=== PATIENT | female | born 1940 | race Caucasian/White ===

== ENCOUNTER 2017-03-03 13:00 | Outpatient (CLI) | payer MEDICARE, OTHER | END 2017-03-04 23:59 | disposition short-term general hospital (02) | LOC: D.OPS 13:00 | DX: K52.9 Noninfective gastroenteritis and colitis, unspecified (principal); E86.0 Dehydration; I44.7 Left bundle-branch block, unspecified; R94.31 Abnormal electrocardiogram [ECG] [EKG]; I10 Essential (primary) hypertension; Z95.0 Presence of cardiac pacemaker ==

== ENCOUNTER → 2017-05-24 12:34 | Outpatient (CLI) | payer MEDICARE, OTHER | END | disposition home or self-care (01) | LOC: D.RAD 12:34 | DX: R13.10 Dysphagia, unspecified (principal) ==

== ENCOUNTER 2017-10-06 08:52 | Observation (INO) | payer MEDICARE, OTHER ==
[~2017-10-06] VITALS: Ht 172.7 cm; Wt 52.4 kg
--- NOTE | ~2017-10-06 | EC ---
PATIENT:JOHNNA JUÁREZ DATE OF SERVICE: 10/06/17 SEX: F MEDICAL RECORD: [id number] DATE OF : 36 LOCATION:D. D.212 AGE OF PATIENT: 77 ADMISSION DATE: 10/06/17 REFERRING PHYSICIAN: INTERPRETING PHYSICIAN: JUAN TAN MD ECHOCARDIOGRAM REPORT ECHO CHARGES 4 ECHO COMPLETE CLINICAL DIAGNOSIS: SYNCOPE ECHOCARDIOGRAPHIC MEASUREMENTS (adult normal given) AC root (d.<3.7cm) 3.1 cm LV Septum d (<1.2 cm> 1.4 cm Valve Excursion 2.1 cm LV Septum (systole) 2.1 cm Left Atria (s.<4.0cm> 3.6 cm LVPW d(<1.2cm) 1.2 cm RV (d.<2.3cm) 2.5 cm LVPW (sytole) 2.0 cm LV diastole(<5.6CM) 4.6 cm MV E-F(>70mm/sec) cm LV systole 2.5 cm LVOT Diameter 1.8 cm MV exc.(>10mm) cm Est.ejection fraction (50-75%) % Pericardial Effusion N DOPPLER: LVIT cm/sec A 41.0 cm/sec E 65.0 cm/sec LA cm/sec RVSP 46.0 mmHg LVOT 121 cm/sec AOP1/2T m/s Asc. Ao 145 cm/sec RVOT 62.0 cm/sec RA cm/sec PA 79.0 cm/sec AV Gradient Peak 8.4 mmHg AV Mean 5.7 mmHg AV Area 2.0 cm MV Gradient Peak 3.4 mmHg MV Mean 1.0 mmHg MV Area cm COMMENTS: Player Services Representative: Brigid CONTIOE Clinic Director: Syl Tan TAPE# PACS DATE OF SERVICE: 10/06/2017 PROCEDURE: Transthoracic echocardiogram. FINDINGS: 1. Left ventricle has mild concentric left ventricular hypertrophy with normal function and flow characteristics are normal. The ejection fraction is 60%. 2. The left atrium is normal size, normal function. 3. The aortic valve is grossly normal without any abnormalities. 4. The mitral valve shown to have mild mitral regurgitation. ECHOCARDIOGRAM REPORT [id number] JOHNNA JUÁREZ 5. The pulmonic valve has trace pulmonic insufficiency. 6. The tricuspid valve has chus-rs-atuliinm tricuspid regurgitation with an RVSP of 35 to 40 mmHg. CONCLUSIONS: The patient has evidence of mild left ventricular hypertrophy with possibly mild pulmonary hypertension. Otherwise, the echo was normal. TRANSINT:[id number] Voice Confirmation ID: [id number] DOCUMENT ID: [id number] 10/16/2017 Edited to correct date of service, dmm. JUAN TAN MD at 1038 CC: [id number] DICTATION DATE: 10/10/17 0833 MECHANICAL TEST ENGINEER: 10/10/17 1132 DIS IN 10/07/17 [facility] [address] [place] [address]
[2017-10-06 09:42] LABS: BASOPHILS 0.5 % (0-2); EOSINOPHILS 2.7 % (0-7); HEMATOCRIT 37.9 % (36.0-48.0); IMMATURE GRANULOCYTES 0.2 % (0-5); LYMPHOCYTES 25.8 % (15-50); MCH 34.5 pg (26.0-34.0); MCHC 34.3 g/dL (31.0-37.0); MCV 100.5 fL (80.0-100.0); MONOCYTES 9.2 % (2-11); NEUTROPHILS 61.6 % (40-80); PLATELET COUNT 130 10x3/uL (130-400); RBC 3.77 10x6/uL (4.00-5.40); RDW 14.5 % (11.5-14.5); WBC 5.9 10x3/uL (4.8-10.8)
[2017-10-06 10:01] LABS: ALBUMIN 3.1 g/dL (3.4-5.0); ALKALINE PHOSPHATASE 77 U/L (46-116); ALT (SGPT) 35 U/L (10-68); BILIRUBIN - TOTAL 0.77 mg/dL (0.2-1.3); CALC OSMOLALITY 292 mosm/kg (275-300); CARBON DIOXIDE 26.5 mmol/L (21.0-32.0); CHLORIDE - SERUM 108 mmol/L (98-107); CREATININE - SERUM 0.7 mg/dL (0.6-1.3); GLUCOSE 100 mg/dL (74-106); POTASSIUM - SERUM 3.9 mmol/L (3.5-5.1); PROTEIN - SERUM 5.9 g/dL (6.4-8.2); SODIUM 143 mmol/L (136-145); UREA NITROGEN 35 mg/dL (7-18); eGFR NON AFRICAN AMERICAN 85 mL/min (90-120)
[2017-10-06 10:22] LABS: CREATINE KINASE 422 UL (21-215)
[2017-10-06 10:36] LABS: TROPONIN-I < 0.017 ng/mL (0.000-0.060)
[2017-10-06 10:38] LABS: CKMB 32.4 U/L (0.0-3.6)
[2017-10-06 12:05] LABS: APPEARANCE CLEAR (CLEAR); BILIRUBIN NEGATIVE (NEGATIVE); COLOR YELLOW (YELLOW); GLUCOSE NEGATIVE (NEGATIVE); KETONE NEGATIVE (NEGATIVE); NITRITE NEGATIVE (NEGATIVE); PROTEIN NEGATIVE (NEGATIVE); SPECIFIC GRAVITY 1.015 (1.005-1.020); UROBILINOGEN NORMAL (NORMAL)
[2017-10-06 13:00] LABS: CKMB 32.2 U/L (0.0-3.6); CREATINE KINASE 420 UL (21-215)
[2017-10-06 13:01] LABS: TROPONIN-I < 0.017 ng/mL (0.000-0.060)
[2017-10-06 13:38] VITALS: BP 124/43; Ht 172.7 cm; Wt 52.4 kg
[2017-10-06] MEDS ORDERED: CHLORTHALIDONE25 MG PO (14:06)
[2017-10-06] MEDS ORDERED: PRINIVIL20 MG PO (14:06)
[2017-10-06] MEDS ORDERED: BETAPACE160 MG PO (14:07)
[2017-10-06] MEDS ORDERED: FLORAJEN3 CAPS460 MG PO (14:07)
[2017-10-06] MEDS ORDERED: ZYLOPRIM100 MG PO (14:09)
[2017-10-06] MEDS ORDERED: VITAMIN D2000 UNIT PO (14:09)
[2017-10-06] MEDS ORDERED: ZANTAC300 MG (14:09)
[2017-10-06] MEDS ORDERED: BAYER CHEWABLE81 MG PO (14:10)
[2017-10-06] MEDS ORDERED: LOMOTIL TABLET1 TAB PO (14:11)
[2017-10-06 15:40] VITALS: BP 131/52
[2017-10-06 18:34] LABS: CKMB 25.9 U/L (0.0-3.6); CREATINE KINASE 362 UL (21-215); TROPONIN-I < 0.017 ng/mL (0.000-0.060)
[2017-10-06 21:52] VITALS: BP 116/58
[2017-10-07 00:52] VITALS: BP 104/43
[2017-10-07 01:25] LABS: CKMB 19.4 U/L (0.0-3.6); CREATINE KINASE 302 UL (21-215)
[2017-10-07 01:26] LABS: TROPONIN-I 0.016 ng/mL (0.000-0.060)
[2017-10-07 05:25] LABS: BASOPHILS 0.5 % (0-2); EOSINOPHILS 4.8 % (0-7); HEMATOCRIT 33.3 % (36.0-48.0); HEMOGLOBIN 11.3 g/dL (12-16); IMMATURE GRANULOCYTES 0.2 % (0-5); LYMPHOCYTES 36.6 % (15-50); MCH 33.9 pg (26.0-34.0); MCHC 33.9 g/dL (31.0-37.0); MEAN PLATELET VOLUME 10.6 fL (7.4-10.4); MONOCYTES 11.2 % (2-11); NEUTROPHILS 46.7 % (40-80); PLATELET COUNT 137 10x3/uL (130-400); RBC 3.33 10x6/uL (4.00-5.40); RDW 14.4 % (11.5-14.5)
[2017-10-07 05:27] LABS: WBC 4.2 10x3/uL (4.8-10.8)
[2017-10-07 06:17] LABS: ALBUMIN 2.5 g/dL (3.4-5.0); ALKALINE PHOSPHATASE 61 U/L (46-116); ALT (SGPT) 28 U/L (10-68); BILIRUBIN - TOTAL 0.55 mg/dL (0.2-1.3); CALC OSMOLALITY 293 mosm/kg (275-300); CALCIUM 8.2 mg/dL (8.5-10.1); CARBON DIOXIDE 22.8 mmol/L (21.0-32.0); CHLORIDE - SERUM 113 mmol/L (98-107); CREATINE KINASE 271 UL (21-215); GLUCOSE 84 mg/dL (74-106); POTASSIUM - SERUM 3.5 mmol/L (3.5-5.1); PROTEIN - SERUM 4.9 g/dL (6.4-8.2); SODIUM 145 mmol/L (136-145); TROPONIN-I 0.026 ng/mL (0.000-0.060); UREA NITROGEN 30 mg/dL (7-18)
[2017-10-07 06:20] LABS: CKMB 18.2 U/L (0.0-3.6); CREATININE - SERUM 0.5 mg/dL (0.6-1.3); eGFR NON AFRICAN AMERICAN > 90 mL/min (90-120)
[2017-10-07 07:25] VITALS: BP 123/51
[2017-10-07 13:09] VITALS: BP 137/65
== END 2017-10-07 13:21 | disposition home or self-care (01) ==
LOC: D.ER 08:52 → D.M2 12:30 → OBSVTIME 12:30 → D.M2 10-07 13:21
PROVIDERS: Family Medicine; Nurse Practitioner Family
DX: I95.9 Hypotension, unspecified (principal); I48.2 Chronic atrial fibrillation; E86.0 Dehydration; I10 Essential (primary) hypertension; K21.9 Gastro-esophageal reflux disease without esophagitis

== ENCOUNTER → 2017-10-22 12:49 | Outpatient (CLI) | payer MEDICARE, OTHER ==
[2017-10-06 13:38] VITALS: BMI 17.2
[~2017-10-22 12:49] MED LIST: BAYER CHEWABLE81 MG PO; BETAPACE160 MG PO; CHLORTHALIDONE25 MG PO; FLORAJEN3 CAPS460 MG PO; LOMOTIL TABLET1 TAB PO; PRINIVIL20 MG PO; VITAMIN D2000 UNIT PO; ZANTAC300 MG; ZYLOPRIM100 MG PO
== END | disposition home or self-care (01) ==
LOC: D.RAD
DX: R13.10 Dysphagia, unspecified (principal)

== ENCOUNTER 2017-12-31 20:32 | Emergency (ER) | payer MEDICARE, OTHER ==
[2017-10-06 13:38] VITALS: BMI 17.2
== END 2017-12-31 22:08 | disposition home or self-care (01) ==
LOC: D.ER 20:32
DX: S00.01XA Abrasion of scalp, initial encounter (principal); W19.XXXA Unspecified fall, initial encounter; Y93.89 Activity, other specified; Y92.019 Unspecified place in single-family (private) house as the place of occurrence of the external cause; I10 Essential (primary) hypertension

== ENCOUNTER 2018-04-17 07:27 | Emergency (ER) | payer MEDICARE, OTHER ==
[~2018-04-17] VITALS: Ht 172.7 cm; Wt 50.0 kg
[~2018-04-17 07:27] MED LIST changes: +BETAPACE 80 MG80 MG PO; -ZANTAC300 MG; +ZANTAC300 MG PO
[2018-04-17 07:28] VITALS: Ht 172.7 cm; Wt 50.0 kg
[2018-04-17] MEDS ORDERED: FLORAJEN3 CAPS460 MG PO (07:32)
[2018-04-17 09:10] VITALS: BP 172/76
== END 2018-04-17 09:23 | disposition home or self-care (01) ==
LOC: D.ER 07:27
DX: S83.91XA Sprain of unspecified site of right knee, initial encounter (principal); W18.31XA Fall on same level due to stepping on an object, initial encounter; Y93.89 Activity, other specified; Y92.019 Unspecified place in single-family (private) house as the place of occurrence of the external cause; I10 Essential (primary) hypertension

== ENCOUNTER 2018-05-14 08:46 | Emergency (ER) | payer MEDICARE, OTHER ==
[~2018-05-14] VITALS: Ht 172.7 cm; Wt 49.5 kg
[2018-05-14 08:47] VITALS: Ht 172.7 cm; Wt 49.5 kg
[2018-05-14 09:18] LABS: BASOPHILS 0.7 % (0-2); EOSINOPHILS 3.7 % (0-7); HEMATOCRIT 38.7 % (36.0-48.0); HEMOGLOBIN 13.4 g/dL (12-16); IMMATURE GRANULOCYTES 0.2 % (0-5); LYMPHOCYTES 28.7 % (15-50); MCH 34.5 pg (26.0-34.0); MCHC 34.6 g/dL (31.0-37.0); MCV 99.7 fL (80.0-100.0); MEAN PLATELET VOLUME 11.1 fL (7.4-10.4); NEUTROPHILS 57.7 % (40-80); PLATELET COUNT 106 10x3/uL (130-400); RBC 3.88 10x6/uL (4.00-5.40); RDW 14.1 % (11.5-14.5); WBC 5.9 10x3/uL (4.8-10.8)
[2018-05-14 09:21] LABS: APTT 29.2 SECONDS (22.8-39.4); INR 1.09 (0.85-1.17); PROTIME 13.7 SECONDS (11.6-15.0)
[2018-05-14 09:30] LABS: ALBUMIN 3.4 g/dL (3.4-5.0); ALKALINE PHOSPHATASE 72 U/L (46-116); ALT (SGPT) 35 U/L (10-68); BILIRUBIN - TOTAL 0.68 mg/dL (0.2-1.3); CALC OSMOLALITY 295 mosm/kg (275-300); CARBON DIOXIDE 30.6 mmol/L (21.0-32.0); CHLORIDE - SERUM 109 mmol/L (98-107); CREATININE - SERUM 0.5 mg/dL (0.6-1.3); GLUCOSE 108 mg/dL (74-106); POTASSIUM - SERUM 4.7 mmol/L (3.5-5.1); PROTEIN - SERUM 6.4 g/dL (6.4-8.2); SODIUM 146 mmol/L (136-145); UREA NITROGEN 24 mg/dL (7-18); eGFR NON AFRICAN AMERICAN > 90 mL/min (90-120)
[2018-05-14] MEDS ORDERED: NORCO 7.5/325 T1 TA1 PO (12:04)
[2018-05-14 13:07] VITALS: BP 171/90
== END 2018-05-14 13:05 | disposition home or self-care (01) ==
LOC: D.ER 08:46
PROVIDERS: Family Medicine
DX: S42.202A Unspecified fracture of upper end of left humerus, initial encounter for closed fracture (principal); W18.30XA Fall on same level, unspecified, initial encounter; Y93.89 Activity, other specified; Y92.019 Unspecified place in single-family (private) house as the place of occurrence of the external cause; M25.512 Pain in left shoulder; G71.0 Muscular dystrophy; I10 Essential (primary) hypertension; I44.7 Left bundle-branch block, unspecified

== ENCOUNTER 2018-05-14 22:48 | Inpatient (IN) | payer MEDICARE, OTHER ==
[~2018-05-14] VITALS: Ht 172.7 cm; Wt 49.4 kg
--- NOTE | ~2018-05-14 | HP ---
PATIENT: JOHNNA JUÁREZ MEDICAL RECORD: [id number] ACCOUNT: [id number] LOCATION:D.[facility] : 36 ADMISSION DATE: 05/15/18 HISTORY AND PHYSICAL EXAMINATION DATE OF ADMISSION: 05/15/2018 CHIEF COMPLAINT: Near-syncope as well as status post fall with left humeral neck fracture. HISTORY OF PRESENT ILLNESS: The patient is a 77-year-old female who has muscular dystrophy. She had presented to the Emergency Room on 05/14/2018, was found to have an acute, mildly angulated left humeral neck fracture. The patient was placed in a sling. She presented once again to the Emergency Room after she had a near-syncopal episode. It was felt the patient should be admitted and orthopedic consultation obtained. PAST MEDICAL AND SURGICAL HISTORY: Significant. She has had a history of having hypertension in the past. She has also had atrial fibrillation. The patient is G2, P2. She has had bilateral cataract surgery. She had a hysterectomy. She has had a vitrectomy. She has also had a left knee arthroscopy. She has had a pacemaker inserted. She has had a cholecystectomy. FAMILY HISTORY: Father in a MVA at 70. Mother of heart related disease in her 80s. SOCIAL HISTORY: Born and raised in [place]. She has worked as an administrative underwriter. She has lived in [place] along with her for the past 30 years. ALLERGIES: COUMADIN WELL PENICILLIN. MEDICATIONS: Include allopurinol 100 mg 2 tablets once a day, aspirin 81 mg once a day, Florajen 3460 mg capsule once daily, Lisinopril 20 mg daily, ranitidine 150 mg p.o. b.i.d., sotalol 80 mg b.i.d., vitamin D3 2000 international units once a day. PHYSICAL EXAMINATION: VITAL SIGNS: In the Emergency Room, initially the patient's blood pressure was 136/63, pulse 77, temperature is 99, O2 sat is 97% on room air. GENERAL: She is alert. She is oriented times 3. HEENT: Head is normocephalic. No lesions. Ears: TMs clear. Eyes: Pupils equal, round and reactive to light. Her extraocular movements are intact. Her nasal cavity, oral cavity and oropharynx are clear. NECK: Supple. There is no adenopathy. HEART: Regular rate without murmurs, gallops or rubs. LUNGS: Clear. ABDOMEN: Soft, bowel sounds are positive. EXTREMITIES: The patient does have edema as well as ecchymosis of the left shoulder. Lower extremities have no edema. LABORATORY AND DIAGNOSTIC DATA: Her white count is 7.1, hemoglobin 12.6, hematocrit is 36.6, her platelets are 105. The patient's sodium is 144, potassium 3.8, chloride is 106, BUN 23, creatinine 0.6, glucose 123. Troponin was negative. Creatinine kinase was 246. The patient has had a chest x-ray on HISTORY AND PHYSICAL [id number] JOHNNA JUÁREZ the 8th, which showed no acute pulmonary disease, mildly displaced acute fracture of proximal left humerus. Shoulder CT revealed acute, mildly displaced, minimally angulated comminuted fracture of cervical neck and the humeral head of the proximal left humerus. On 10/06/2017, she had a carotid Doppler; carotid Doppler revealed no significant stenosis noted. ASSESSMENT: 1. Near-syncope. 2. History of recent fall with left humeral neck fracture. 3. History of muscular dystrophy. 4. Hypertension. 5. Atrial fibrillation. PLAN: The patient is admitted for telemetry monitoring. Also, orthopedic consultation will be obtained. TRANSINT:[id number] Voice Confirmation ID: [id number] DOCUMENT ID: [id number] KEEGAN AVILEZ MD at 1251 CC: [id number] DICTATION DATE: 05/15/18 0714 LACQUER SHADER: 05/15/18 1002 ADM IN [place] [id number] [place] [address]
[~2018-05-14 22:48] MED LIST changes: +NORCO 7.5/325 T1 TA1 PO
[2018-05-15] VITALS (17 sets, daily range): BP systolic 129–182; BP diastolic 48–80; Ht 172.7 cm; Wt 49.4 kg
[2018-05-15 01:41] LABS: BASOPHILS 0.3 % (0-2); EOSINOPHILS 1.3 % (0-7); HEMATOCRIT 36.6 % (36.0-48.0); HEMOGLOBIN 12.6 g/dL (12-16); IMMATURE GRANULOCYTES 0.3 % (0-5); LYMPHOCYTES 21.1 % (15-50); MCH 34.2 pg (26.0-34.0); MCHC 34.4 g/dL (31.0-37.0); MCV 99.5 fL (80.0-100.0); MEAN PLATELET VOLUME 10.6 fL (7.4-10.4); MONOCYTES 9.8 % (2-11); NEUTROPHILS 67.2 % (40-80); PLATELET COUNT 105 10x3/uL (130-400); RBC 3.68 10x6/uL (4.00-5.40); RDW 13.7 % (11.5-14.5); WBC 7.1 10x3/uL (4.8-10.8)
[2018-05-15 02:03] LABS: CALC OSMOLALITY 291 mosm/kg (275-300); CALCIUM 8.6 mg/dL (8.5-10.1); CARBON DIOXIDE 32.5 mmol/L (21.0-32.0); CHLORIDE - SERUM 106 mmol/L (98-107); CKMB 12.3 U/L (0.0-3.6); CREATINE KINASE 246 UL (21-215); CREATININE - SERUM 0.6 mg/dL (0.6-1.3); GLUCOSE 123 mg/dL (74-106); SODIUM 144 mmol/L (136-145); TROPONIN-I 0.024 ng/mL (0.000-0.060); UREA NITROGEN 23 mg/dL (7-18); eGFR NON AFRICAN AMERICAN > 90 mL/min (90-120)
[2018-05-15 02:07] LABS: POTASSIUM - SERUM 3.8 mmol/L (3.5-5.1)
[2018-05-16 00:14] VITALS: BP 138/57
[2018-05-16 04:36] VITALS: BP 128/60
[2018-05-16 04:55] LABS: BASOPHILS 0.7 % (0-2); EOSINOPHILS 4.1 % (0-7); HEMOGLOBIN 11.2 g/dL (12-16); IMMATURE GRANULOCYTES 0.2 % (0-5); LYMPHOCYTES 32.8 % (15-50); MCH 33.9 pg (26.0-34.0); MCHC 33.9 g/dL (31.0-37.0); MEAN PLATELET VOLUME 10.7 fL (7.4-10.4); NEUTROPHILS 49.2 % (40-80); PLATELET COUNT 86 10x3/uL (130-400)
[2018-05-16 05:11] LABS: CALC OSMOLALITY 290 mosm/kg (275-300); CALCIUM 7.6 mg/dL (8.5-10.1); CARBON DIOXIDE 27.5 mmol/L (21.0-32.0); CHLORIDE - SERUM 112 mmol/L (98-107); CREATININE - SERUM 0.5 mg/dL (0.6-1.3); GLUCOSE 82 mg/dL (74-106); POTASSIUM - SERUM 3.4 mmol/L (3.5-5.1); SODIUM 146 mmol/L (136-145); eGFR NON AFRICAN AMERICAN > 90 mL/min (90-120)
[2018-05-16 05:23] LABS: UREA NITROGEN 16 mg/dL (7-18)
[2018-05-16 05:34] LABS: WBC 4.6 10x3/uL (4.8-10.8)
[2018-05-16 06:37] LABS: PLATELET ESTIMATE DECREASED
[2018-05-16 08:31] VITALS: BP 156/64
[2018-05-16 13:32] VITALS: BP 150/64
[2018-05-16 16:13] VITALS: BP 156/68
[2018-05-16 20:00] VITALS: BP 164/69
[2018-05-17] VITALS: BP 123/55
[2018-05-17 04:00] VITALS: BP 116/47
[2018-05-17 08:20] LABS: BASOPHILS 0.7 % (0-2); HEMATOCRIT 33.2 % (36.0-48.0); HEMOGLOBIN 11.1 g/dL (12-16); IMMATURE GRANULOCYTES 0.2 % (0-5); LYMPHOCYTES 31.3 % (15-50); MCH 33.5 pg (26.0-34.0); MCHC 33.4 g/dL (31.0-37.0); MCV 100.3 fL (80.0-100.0); MEAN PLATELET VOLUME 10.5 fL (7.4-10.4); MONOCYTES 10.4 % (2-11); NEUTROPHILS 53.4 % (40-80); PLATELET COUNT 92 10x3/uL (130-400); RBC 3.31 10x6/uL (4.00-5.40); RDW 14.1 % (11.5-14.5); WBC 4.5 10x3/uL (4.8-10.8)
[2018-05-17 08:28] LABS: CALC OSMOLALITY 290 mosm/kg (275-300); CALCIUM 7.9 mg/dL (8.5-10.1); CARBON DIOXIDE 21.9 mmol/L (21.0-32.0); CHLORIDE - SERUM 112 mmol/L (98-107); CREATININE - SERUM 0.4 mg/dL (0.6-1.3); POTASSIUM - SERUM 3.8 mmol/L (3.5-5.1); SODIUM 146 mmol/L (136-145); UREA NITROGEN 18 mg/dL (7-18); eGFR NON AFRICAN AMERICAN > 90 mL/min (90-120)
[2018-05-17 08:35] LABS: GLUCOSE 68 mg/dL (74-106)
[2018-05-17 09:19] VITALS: BP 107/53
[2018-05-17 12:16] VITALS: BP 149/63
[2018-05-17 16:16] VITALS: BP 145/42
[2018-05-17 19:41] VITALS: BP 148/54
[2018-05-18] VITALS (12 sets, daily range): BP systolic 119–162; BP diastolic 61–100
[2018-05-18 06:30] LABS: BASOPHILS 0.6 % (0-2); EOSINOPHILS 3.5 % (0-7); HEMATOCRIT 32.4 % (36.0-48.0); HEMOGLOBIN 11.4 g/dL (12-16); IMMATURE GRANULOCYTES 0.2 % (0-5); LYMPHOCYTES 38.1 % (15-50); MCH 33.8 pg (26.0-34.0); MCHC 35.2 g/dL (31.0-37.0); MEAN PLATELET VOLUME 10.7 fL (7.4-10.4); NEUTROPHILS 46.6 % (40-80); RBC 3.37 10x6/uL (4.00-5.40); RDW 13.9 % (11.5-14.5); WBC 5.4 10x3/uL (4.8-10.8)
[2018-05-18 06:44] LABS: MCV 96.1 fL (80.0-100.0); PLATELET COUNT 116 10x3/uL (130-400)
[2018-05-18 07:27] LABS: ALBUMIN 2.5 g/dL (3.4-5.0); ALKALINE PHOSPHATASE 55 U/L (46-116); ALT (SGPT) 26 U/L (10-68); BILIRUBIN - TOTAL 0.48 mg/dL (0.2-1.3); CALCIUM 7.7 mg/dL (8.5-10.1); CARBON DIOXIDE 24.3 mmol/L (21.0-32.0); CHLORIDE - SERUM 114 mmol/L (98-107); CREATININE - SERUM 0.5 mg/dL (0.6-1.3); MAGNESIUM - SERUM 1.1 mg/dL (1.8-2.4); PHOSPHOROUS 2.7 mg/dL (2.5-4.9); PROTEIN - SERUM 4.9 g/dL (6.4-8.2); SODIUM 146 mmol/L (136-145); UREA NITROGEN 14 mg/dL (7-18); eGFR NON AFRICAN AMERICAN > 90 mL/min (90-120)
[2018-05-18 07:28] LABS: CALC OSMOLALITY 292 mosm/kg (275-300); GLUCOSE 120 mg/dL (74-106)
[2018-05-18] MEDS ORDERED: NORCO 7.5/325 T1 TA1 PO (15:21)
[2018-05-18] MEDS ORDERED: KEFLEX500 MG PO (15:21)
[2018-05-19 04:33] LABS: BASOPHILS 0 % (0-2); EOSINOPHILS 0 % (0-7); HEMATOCRIT 30.8 % (36.0-48.0); HEMOGLOBIN 10.6 g/dL (12-16); IMMATURE GRANULOCYTES 0.2 % (0-5); LYMPHOCYTES 15.7 % (15-50); MCH 33.2 pg (26.0-34.0); MCHC 34.4 g/dL (31.0-37.0); MCV 96.6 fL (80.0-100.0); MEAN PLATELET VOLUME 11.4 fL (7.4-10.4); MONOCYTES 9.7 % (2-11); NEUTROPHILS 74.4 % (40-80); PLATELET COUNT 121 10x3/uL (130-400); RBC 3.19 10x6/uL (4.00-5.40); RDW 14.1 % (11.5-14.5); WBC 6.1 10x3/uL (4.8-10.8)
[2018-05-19 05:00] LABS: CALCIUM 7.7 mg/dL (8.5-10.1); CARBON DIOXIDE 29.4 mmol/L (21.0-32.0); CHLORIDE - SERUM 109 mmol/L (98-107); SODIUM 146 mmol/L (136-145); UREA NITROGEN 15 mg/dL (7-18)
[2018-05-19 05:05] VITALS: BP 131/60
[2018-05-19 05:19] LABS: CALC OSMOLALITY 295 mosm/kg (275-300); CREATININE - SERUM 0.7 mg/dL (0.6-1.3); GLUCOSE 171 mg/dL (74-106); POTASSIUM - SERUM 3.6 mmol/L (3.5-5.1); eGFR NON AFRICAN AMERICAN 85 mL/min (90-120)
[2018-05-19 08:20] VITALS: BP 151/64
== END 2018-05-19 11:33 | disposition home health service (06) | DRG 493 ==
LOC: D.ER 22:48 → D.MS 05-15 01:19 → D.EDHOLD 05-15 01:19 → D.MS 05-15 11:23
PROVIDERS: Emergency Medicine; Family Medicine; Orthopaedic Surgery
PROC: 0PSD04Z Reposition Left Humeral Head with Internal Fixation Device, Open Approach (ICD-10-PCS; principal; 2018-05-18 09:00)
DX: S42.212A Unspecified displaced fracture of surgical neck of left humerus, initial encounter for closed fracture (principal); E87.0 Hyperosmolality and hypernatremia; S42.252A Displaced fracture of greater tuberosity of left humerus, initial encounter for closed fracture; W18.30XA Fall on same level, unspecified, initial encounter; R55 Syncope and collapse; G35 Multiple sclerosis; I10 Essential (primary) hypertension; I48.0 Paroxysmal atrial fibrillation; Z95.0 Presence of cardiac pacemaker; E87.6 Hypokalemia

== ENCOUNTER 2018-07-14 10:32 | Emergency (ER) | payer MEDICARE, OTHER ==
[~2018-07-14] VITALS: Ht 172.7 cm; Wt 49.5 kg
[~2018-07-14 10:32] MED LIST changes: +KEFLEX500 MG PO
[2018-07-14 10:39] VITALS: Ht 172.7 cm; Wt 49.5 kg
[2018-07-14 13:01] LABS: BASOPHILS 0.3 % (0-2); EOSINOPHILS 0.8 % (0-7); HEMATOCRIT 41.4 % (36.0-48.0); HEMOGLOBIN 14.2 g/dL (12-16); IMMATURE GRANULOCYTES 0.3 % (0-5); LYMPHOCYTES 20.5 % (15-50); MCH 34.1 pg (26.0-34.0); MCHC 34.3 g/dL (31.0-37.0); MCV 99.5 fL (80.0-100.0); MEAN PLATELET VOLUME 11.6 fL (7.4-10.4); MONOCYTES 6.7 % (2-11); NEUTROPHILS 71.4 % (40-80); PLATELET COUNT 118 10x3/uL (130-400); RBC 4.16 10x6/uL (4.00-5.40); RDW 13.9 % (11.5-14.5); WBC 6.6 10x3/uL (4.8-10.8)
[2018-07-14 13:05] LABS: ALBUMIN 3.2 g/dL (3.4-5.0); ALKALINE PHOSPHATASE 67 U/L (46-116); ALT (SGPT) 44 U/L (10-68); CALC OSMOLALITY 290 mosm/kg (275-300); CALCIUM 9.5 mg/dL (8.5-10.1); CARBON DIOXIDE 29.7 mmol/L (21.0-32.0); CHLORIDE - SERUM 107 mmol/L (98-107); CREATININE - SERUM 0.6 mg/dL (0.6-1.3); POTASSIUM - SERUM 4.4 mmol/L (3.5-5.1); PROTEIN - SERUM 6.2 g/dL (6.4-8.2); SODIUM 143 mmol/L (136-145); UREA NITROGEN 27 mg/dL (7-18); eGFR NON AFRICAN AMERICAN > 90 mL/min (90-120)
[2018-07-14 13:06] LABS: GLUCOSE 121 mg/dL (74-106)
[2018-07-14 13:16] LABS: CKMB 14.5 U/L (0.0-3.6); CREATINE KINASE 237 UL (21-215); TROPONIN-I < 0.017 ng/mL (0.000-0.060)
[2018-07-14 15:14] VITALS: BP 140/64
== END 2018-07-14 14:48 | disposition home or self-care (01) ==
LOC: D.ER 10:32
PROVIDERS: Family Medicine
DX: R55 Syncope and collapse (principal); I48.91 Unspecified atrial fibrillation; Z95.0 Presence of cardiac pacemaker; I10 Essential (primary) hypertension

== ENCOUNTER 2018-08-11 14:56 | Emergency (ER) | payer MEDICARE, OTHER ==
[~2018-08-11] VITALS: Ht 172.7 cm; Wt 59.1 kg
[2018-08-11 14:58] VITALS: Ht 172.7 cm; Wt 59.1 kg
[2018-08-11 15:19] LABS: BASOPHILS 0.5 % (0-2); EOSINOPHILS 1.5 % (0-7); HEMATOCRIT 39.3 % (36.0-48.0); HEMOGLOBIN 13.5 g/dL (12-16); IMMATURE GRANULOCYTES 0.5 % (0-5); LYMPHOCYTES 25.5 % (15-50); MCH 33.9 pg (26.0-34.0); MCHC 34.4 g/dL (31.0-37.0); MCV 98.7 fL (80.0-100.0); MEAN PLATELET VOLUME 10.7 fL (7.4-10.4); MONOCYTES 9.1 % (2-11); NEUTROPHILS 62.9 % (40-80); RBC 3.98 10x6/uL (4.00-5.40); RDW 14.3 % (11.5-14.5); WBC 6.5 10x3/uL (4.8-10.8)
[2018-08-11 15:23] LABS: PLATELET COUNT 159 10x3/uL (130-400)
[2018-08-11 15:32] LABS: ALBUMIN 3.3 g/dL (3.4-5.0); ALKALINE PHOSPHATASE 78 U/L (46-116); ALT (SGPT) 35 U/L (10-68); BILIRUBIN - TOTAL 0.33 mg/dL (0.2-1.3); CALC OSMOLALITY 289 mosm/kg (275-300); CALCIUM 9.2 mg/dL (8.5-10.1); CARBON DIOXIDE 28.4 mmol/L (21.0-32.0); CHLORIDE - SERUM 106 mmol/L (98-107); CREATININE - SERUM 0.6 mg/dL (0.6-1.3); GLUCOSE 91 mg/dL (74-106); POTASSIUM - SERUM 3.9 mmol/L (3.5-5.1); PROTEIN - SERUM 6.8 g/dL (6.4-8.2); SODIUM 144 mmol/L (136-145); UREA NITROGEN 20 mg/dL (7-18); eGFR NON AFRICAN AMERICAN > 90 mL/min (90-120)
[2018-08-11 15:54] LABS: APTT 27.9 SECONDS (22.8-39.4); INR 1.07 (0.85-1.17); PROTIME 13.5 SECONDS (11.6-15.0)
[2018-08-11 16:24] VITALS: BP 198/088
== END 2018-08-11 16:26 | disposition home or self-care (01) ==
LOC: D.ER 14:56
PROVIDERS: Family Medicine
DX: S01.91XA Laceration without foreign body of unspecified part of head, initial encounter (principal); W18.30XA Fall on same level, unspecified, initial encounter; Y93.89 Activity, other specified; Y92.511 Restaurant or cafe as the place of occurrence of the external cause; I10 Essential (primary) hypertension; Z95.0 Presence of cardiac pacemaker; I48.91 Unspecified atrial fibrillation

== ENCOUNTER 2019-04-16 21:02 | Emergency (ER) | payer MEDICARE, OTHER ==
[~2019-04-16] VITALS: Ht 172.7 cm; Wt 49.5 kg
[2019-04-16 21:05] VITALS: Ht 172.7 cm; Wt 49.5 kg
[2019-04-16] MEDS ORDERED: TORADOL10 MG PO (22:53)
[2019-04-17 00:53] VITALS: BP 148/59
== END 2019-04-17 00:03 | disposition home or self-care (01) ==
LOC: D.ER 21:02
DX: S99.922A Unspecified injury of left foot, initial encounter (principal); W22.8XXA Striking against or struck by other objects, initial encounter; I10 Essential (primary) hypertension